=== PATIENT | male | born 1985 | race Two or more races ===

== ENCOUNTER 2025-02-26 02:03 | Emergency (ER) | payer SELFPAY ==
[~2025-02-26] VITALS: Ht 172.7 cm; Wt 70.0 kg
[2025-02-26 02:17] VITALS: O2SAT 100
[2025-02-26] MEDS ORDERED: CYCL5TAB3 MT (05:44)
[2025-02-26] MEDS ORDERED: ACET-2708 MT (05:44)
[2025-02-26] MEDS ORDERED: NAPR-677 MT (05:44)
[2025-02-26 05:51] VITALS: TEMP 36.7; O2SAT 100
[2025-02-26] MEDS: ACETAMINOPHEN 325MG TABLET PO ONE (05:55)
[2025-02-26 05:56] VITALS: BP 106/61; PULSE 42; RESP 12
[2025-02-26] MEDS: KETOROLAC 30MG/ML VIAL IM ONE (05:56)
== END 2025-02-26 06:01 | disposition home or self-care (01) ==
LOC: ER 02:21
DX: M54.50 Low back pain, unspecified (principal); Z79.1 Long term (current) use of non-steroidal anti-inflammatories (NSAID); Z79.899 Other long term (current) drug therapy
CPT/HCPCS: 99284; 72040; 72070; 72100; 96372; J1885